=== PATIENT | female | born 1990 | race Caucasian/White ===

== ENCOUNTER 2017-10-08 09:51 | Emergency (ER) | payer OTHER ==
--- NOTE | 2017-10-08 09:57 | EDPHY ---
H & P Smoking Status: Never smoked Time Seen by Provider: 10/08/17 09:57 HPI/ROS: CHIEF COMPLAINT: Left leg swelling HISTORY OF PRESENT ILLNESS: 21 weeks woman with left leg symptoms; I was called by her primary OBGYN practice at 9:12 a.m. prior to her arrival. Presents with left leg swelling from her groin down to her toes that she just noticed today. Associated with a little reddish discoloration but without fever chills or chest pain or shortness of breath. No recent injury or trauma. Not better or worse with anything. Symptoms mild to moderate. Of note her father has a pro coagulant disorder that she tested negative for, but an aunt and uncle on her father's side have factor 5 Leiden. REVIEW OF SYSTEMS: Eye: no change in vision ENT: no sore throat Cardiac: no chest pain or syncope Pulmonary: no cough or SOB Abdomen: no vomiting, diarrhea, abdominal pain Musculoskeletal: Leg swelling as noted in HPI Skin: Slight redness left lower leg Neuro: no headache Constitutional: no fever : no urinary symptoms A comprehensive 10 point review of systems is otherwise negative aside from elements mentioned in the history of present illness. PAST MEDICAL HISTORY: 21 weeks Social history: Nonsmoker General Appearance: Alert and conversant, cooperative. Eyes: No scleral icterus. ENT, Mouth: Normal mucous membranes. Respiratory: Normal respiratory effort, breath sounds equal, lungs are clear to auscultation. Cardiovascular: Regular rate and rhythm. Normal dorsalis pedis pulse in the left foot. Gastrointestinal: Abdomen is soft and non tender. Neurological: Alert, face symmetric, normal motor and sensory in extremities. Specifically normal and motor and sensory in the left foot. Skin: Erythema but without warmth of the left leg from the groin down to the toes. No lymphangitis. Not hot to the touch. Musculoskeletal: Swelling of the left lower extremity, compartments are soft. Normal range of motion of hip ankle and knee. Psychiatric: Not agitated. Emergency Department course/MDM: Patient risk for DVT, ultrasound discussed and consented. 1045: Ultrasound negative for DVT, suspicion is high though so will next attempt pelvic ultrasound and/or MRI venogram if unable to visualize on ultrasound. 1132: Unable to see pelvic veins on ultrasound, discussed with Dr. Cooley, recommends MRI venogram, discussed with patient and consented. At this time the patient's leg toe by appearance is improving. 1441: MRI here, call Lenora at [phone] after results. I do not think it is likely she has compartment syndrome or fracture, cellulitis or fasciitis, arterial occlusion. A low-flow state noted ultrasound is certainly possible due to uterine compression of her left-sided venous return. Signed out to Martin at 1500 with plan to call her combatant swimmer after MR venogram results. (Yari Gasca) Constitutional: Initial Vital Signs Temperature (C) 36.8 C 10/08/17 09:52 Heart Rate 93 10/08/17 09:52 Respiratory Rate 18 10/08/17 09:52 Blood Pressure 117/78 10/08/17 09:52 O2 Sat (%) 96 10/08/17 09:52 O2 Delivery Mode Room Air Allergies/Adverse Reactions: No Known Allergies Allergy (Unverified 10/08/17 09:55) Home Medications: Medication Instructions Recorded Vit27&Calcium/Iron/FA 1 each PO DAILY 10/08/17 [ Rx 1 Tablet (RX)] Medical Decision Making - Diagnostics Imaging: Discussed imaging studies w/ call center representative Radiologist - Diagnostics Imaging Results: Imaging Impressions Extremity Venous Study 10/08/17 09:52 Impression: Slow blood flow without thrombus formation. Might the patient's uterus be pressing on the left pelvic venous system? A pelvic venous clot cannot be excluded. Results called and discussed with YARI GASCA, at 10/08/2017 10:39 Pelvic/Renal Ultrasound 10/08/17 10:45 Impression: The uterus is likely compressing the left common iliac vein. No thrombus seen in the left external iliac vein, which demonstrates extremely slow flow up to the point at which it is obscured by the uterus containing fetus. Results called to Dr. Yari Gasca at 11:44 AM. Pelvis MRI 10/08/17 11:32 Impression: Difficult exam due to extremely stagnant flow in the left leg and the inability to use IV contrast in a patient. Difficult to exclude a clot below the uterus which is severely extrinsically compressing the iliac bifurcation and left common iliac vein. A message was left for Dr. Nick Salazar at 4:34 PM. ED Course/Re-evaluation: 4:40 p.m. I discussed the MRI results with Dr. Cooley as well as the patient. No need to anticoagulate now. She suggests compression stockings and elevation and cetera. Patient is happy with this plan. She will follow up tomorrow with Dr. Cooley's office. (Nick Salazar) Differential Diagnosis: Differential considered including but not limited to cellulitis, compartment syndrome, arterial occlusion, DVT (Yari Gasca) - Data Points Laboratory Results: Laboratory Results 10/08/17 10:55 10/08/17 10:55 10/08/17 10/08/17 10/08/17 10:55 10:55 10:55 WBC 8.53 10^3/uL 10^3/uL (3.80-9.50) RBC 4.02 10^6/uL L 10^6/uL (4.18-5.33) Hgb 12.3 g/dL L g/dL (12.6-16.3) Hct 36.1 % L % (38.0-47.0) MCV 89.8 fL fL (81.5-99.8) MCH 30.6 pg pg (27.9-34.1) MCHC 34.1 g/dL g/dL (32.4-36.7) RDW 13.1 % % (11.5-15.2) Plt Count 160 10^3/uL 10^3/uL (150-400) MPV 10.6 fL fL (8.7-11.7) Neut % (Auto) 81.3 % H % (39.3-74.2) Lymph % (Auto) 12.2 % L % (15.0-45.0) [place] % (Auto) 4.6 % % (4.5-13.0) Eos % (Auto) 1.3 % % (0.6-7.6) Baso % (Auto) 0.2 % L % (0.3-1.7) Nucleat RBC Rel Count 0.0 % % (0.0-0.2) Absolute Neuts (auto) 6.94 10^3/uL H 10^3/uL (1.70-6.50) Absolute Lymphs (auto) 1.04 10^3/uL 10^3/uL (1.00-3.00) Absolute Monos (auto) 0.39 10^3/uL 10^3/uL (0.30-0.80) Absolute Eos (auto) 0.11 10^3/uL 10^3/uL (0.03-0.40) Absolute Basos (auto) 0.02 10^3/uL 10^3/uL (0.02-0.10) Absolute Nucleated RBC 0.00 10^3/uL 10^3/uL (0-0.01) Immature Gran % 0.4 % % (0.0-1.1) Immature Gran # 0.03 10^3/uL 10^3/uL (0.00-0.10) PT 12.9 SEC SEC (12.0-15.0) INR 0.95 (0.83-1.16) APTT 25.6 SEC SEC (23.0-38.0) Sodium 138 mEq/L mEq/L (135-145) Potassium 3.6 mEq/L mEq/L (3.3-5.0) Chloride 110 mEq/L mEq/L (97-110) Carbon Dioxide 19 mEq/l L mEq/l (22-31) Anion Gap 9 mEq/L mEq/L (8-16) BUN 10 mg/dL mg/dL (7-23) Creatinine 0.5 mg/dL L mg/dL (0.6-1.0) Estimated GFR > 60 Glucose 108 mg/dL H mg/dL (70-100) Calcium 9.0 mg/dL mg/dL (8.5-10.4) Departure - Departure Clinical Impression: Left leg swelling Condition: Good Instructions: Leg Edema (ED) Referrals: CHINEDU LUNDBERG [Other] - As per Instructions Carolina Cooley DO [Doctor of Osteopathy] - 1 day without fail
[2017-10-08 11:06] LABS: PLATELET COUNT 160 10^3/uL (150-400)
[2017-10-08 11:17] LABS: INR 0.95 (0.83-1.16); PROTIME(PATIENT) 12.9 SEC (12.0-15.0)
[2017-10-08 17:28] VITALS: BP 119/77
== END 2017-10-08 17:29 | disposition home or self-care (01) ==
DX: O99.89 Other specified diseases and conditions complicating pregnancy, childbirth and the puerperium (principal); R22.42 Localized swelling, mass and lump, left lower limb; Z3A.21 21 weeks gestation of pregnancy

== ENCOUNTER 2017-10-13 17:57 | Emergency (ER) | payer OTHER ==
--- NOTE | 2017-10-13 17:59 | EDPHY ---
H & P Time Seen by Provider: 10/13/17 17:58 HPI/ROS: CHIEF COMPLAINT: 22 weeks , diagnosed with DVT by ultrasound today HISTORY OF PRESENT ILLNESS: The patient is referred to the emergency department from her OB GYNs office. She was diagnosed with a DVT in the left leg today. Patient denies any chest pain or shortness breath. The patient is currently a . The patient was seen in the emergency department 5 days ago with swelling in the leg. At that point time she had an ultrasound which demonstrated low flow in the extremity but no evidence of an obvious clot. She underwent additional evaluation including a pelvic MRI and ultrasound. The patient was seen and by her OB today who PD the ultrasound which now demonstrates a clot. She continues to have no symptoms suggestive of pulmonary embolism. She had unremarkable laboratory testing performed earlier in the week. The patient does report a family history of thromboembolic events. REVIEW OF SYSTEMS: A comprehensive 10 point review of systems is otherwise negative aside from elements mentioned in the history of present illness. Source: Patient Exam Limitations: No limitations - Medical/Surgical History Other PMH: - Social History Smoking Status: Never smoked - Physical Exam Exam: General Appearance: Alert, no distress Eyes: Pupils equal and round no pallor or injection ENT, Mouth: Mucous membranes moist Respiratory: There are no retractions, lungs are clear to auscultation Cardiovascular: Regular rate and rhythm Gastrointestinal: Abdomen is soft and nontender, no masses, bowel sounds normal Neurological: A&O, normal motor function, normal sensory exam, normal cranial nerves Skin: Warm and dry, no rashes Musculoskeletal: Neck is supple nontender Extremities: Asymmetric swelling calf tenderness noted in the left leg, normal perfusion and capillary refill, no evidence of limb ischemia Psychiatric: Patient is oriented X 3, there is no agitation Constitutional: Initial Vital Signs Temperature (C) 36.6 C 10/13/17 18:00 Heart Rate 74 10/13/17 18:00 Respiratory Rate 16 10/13/17 18:00 Blood Pressure 128/71 H 10/13/17 18:00 O2 Sat (%) 98 10/13/17 18:00 O2 Delivery Mode Room Air Allergies/Adverse Reactions: No Known Allergies Allergy (Unverified 10/13/17 17:59) Home Medications: Medication Instructions Recorded Vit27&Calcium/Iron/FA 1 each PO DAILY 10/08/17 [ Rx 1 Tablet (RX)] Enoxaparin [Lovenox 80 MG (*)] 80 mg SQ Q12H #60 syr 10/13/17 Medical Decision Making - Diagnostics Imaging Results: Imaging Impressions Extremity Venous Study 10/13/17 16:30 Impression: 1. DVT extending from the common iliac vein through the distal femoral vein into the distal thigh. There is flow and compression of the popliteal vein and calf veins. Findings discussed with Carolina Cooley DO at 16:36 hour, 10/13/2017. ED Course/Re-evaluation: The patient is started on weight based Lovenox. She will follow up with her provider network manager as scheduled. I reviewed her laboratory studies from her prior ED visit. She has normal renal function. Departure - Departure Disposition: Home, Routine, Self-Care Clinical Impression: DVT (deep vein thrombosis) in Condition: Good Instructions: Deep Vein Thrombosis (ED) Additional Instructions: 1. Lovenox as directed. 2. Return to the ED for any chest pain or shortness of breath. 3. Please follow up with your provider network manager as scheduled. 4. You will need to be on Lovenox throughout your and will be transitioned to heparin close to delivery. Referrals: Carolina Cooley DO [Doctor of Osteopathy] - As per Instructions
[2017-10-13] MEDS ORDERED: ENOXAPARIN 80 MG/0.8 ML SYR SC ONE (18:04)
[2017-10-13 18:40] VITALS: BP 128/78
== END 2017-10-13 18:40 | disposition home or self-care (01) ==
DX: O22.32 Deep phlebothrombosis in pregnancy, second trimester (principal); I82.412 Acute embolism and thrombosis of left femoral vein; Z3A.22 22 weeks gestation of pregnancy
CPT/HCPCS: J1650

== ENCOUNTER 2018-02-11 06:00 | Inpatient (IN) | payer OTHER ==
[2018-02-12] MEDS ORDERED: OXYTOCIN/RINGERS LACTATE 1,000 ML IV PRN (06:24)
[2018-02-12] MEDS ORDERED: LR 1,000 ML IV PRN (06:24)
[2018-02-12] MEDS ORDERED: MISOPROSTOL 200 MCG TAB PR PRN (06:24)
[2018-02-12] MEDS ORDERED: IBUPROFEN 600 MG TAB PO PRN (06:24)
[2018-02-12] MEDS ORDERED: OLIVE OIL 118 ML BTL MISC PRN (06:24)
[2018-02-12] MEDS ORDERED: LIDOCAINE 1% 300 MG/30 ML SDV SC PRN (06:24)
[2018-02-12] MEDS ORDERED: TERBUTALINE SULFATE 1 MG/ML VIAL IV PRN (06:24)
[2018-02-12] MEDS ORDERED: EPSOM SALT 454 GM TP PRN (06:24)
[2018-02-12 06:58] LABS: PLATELET COUNT 144 10^3/uL (150-400)
[2018-02-12] MEDS ORDERED: OXYTOCIN/RINGERS LACTATE 500 ML IV SCH (07:30)
[2018-02-12] MEDS ORDERED: OXYTOCIN/LR *STANDARD DOSE PROTOCOL IV SCH (08:00)
--- NOTE | 2018-02-12 09:41 | OBPROG ---
Labor Progress Note Assessment/Plan: Assessment: IUP at 39w3d IOL due to hypercoag state with h/o DVT in preg at 22 wks last Lovenox pm 02/09 Plan: on pitocin - AROM, clear SIA when desires 02/12/18 09:30 Subjective/Intrapartum Course: 02/12/18 09:41 Pt doing fine. excited about starting induction - wants AROM to augment pit. SIA when desired. loose /-2, AROM clear Objective: 02/12/18 06:40 Patient ABO/Rh A POSITIVE 02/12/18 06:40 - SVE Dilation (cm): 3 Effacement (%): 80 Station: -2 Membranes: AROM Amniotic Fluid Color: Clear - Contraction Pattern Assessment Current Contraction Pattern: Regular (on pit 6 mu/min - q 2-4 mild) - FHR Assessment Ponce FHR (bpm): 130 FHR Pattern Variability: Moderate FHR Category: 2 (random subtle late decels, accels noted) - Procedures Non-surgical Procedures: Amniotomy - AP Antepartum Course: 02/12/18 09:44 DVT at 22 wks - common iliac to femoral, on lovenox 80 BID Oxytocin Orders Assessment - Pre-Induction/Augmentation Assessment Gestational Age: 39 week(s) and 3 day(s) ICD10 Worksheet Patient Problems: Problems Problem Status Onset Encounter for planned induction of labor Acute DVT during , antepartum Acute - ICD10 Problem Qualifiers (1) DVT during , antepartum
[2018-02-12] MEDS ORDERED: PHENYLEPHRINE HCL 100 MCG/ML SYR ONE (12:28)
[2018-02-12] MEDS ORDERED: BUPIVACAINE 0.25% 30 ML SDV ONE ×2 (12:28→12:31)
[2018-02-12] MEDS ORDERED: fentaNYL 2MCG/ML/BUP 0.1% RTU 100 ML BAG EP ONE (12:28)
[2018-02-12] MEDS ORDERED: fentaNYL 100 MCG/2 ML INJ ONE (12:29)
--- NOTE | 2018-02-12 13:01 | GHP ---
DATE OF ADMISSION: 02/12/2018 HISTORY OF PRESENT ILLNESS: The patient is a 27-year-old, G1, P0, at 39 weeks and 3 days, with an es timated due date of 02/16/2018, who presents for induction. Induction was recommended to optimize an ticoagulant dosing. The patient has had a DVT during this , at 22 weeks, and has been manag ed with Lovenox. The patient was planned for induction yesterday and held her dosing on the day prio r to planned induction; however, was unable to come in and induction is getting started today. The p atnati's last dose of Lovenox was on the evening of 02/09. The patient had a cervical exam of 3 cm di lation and 80% effaced in the office and, therefore, did not need cervical ripening. The patient pre sents this morning for induction. She denies any problems at this time. Denies headache or nausea o r vomiting. The patient is not having any regular contractions. No bleeding or rupture of membranes . She has been feeling good movement. The patient is interested in proceeding timely today an d desires rupture of membranes this morning to augment the Pitocin stimulation. CARE: The patient has been with [facility] since 9 weeks' gestation. The patient 's was essentially uncomplicated until October, at which time, she was seen in the emergency r oom due to swelling in the left lower leg. The patient has a significant family history of factor 5 Leiden disorder, but the patient was tested and it was negative. The patient was initially discharge d home; however, a followup evaluation showed a positive DVT from the common iliac to the femoral vei n. The patient was put on anticoagulation and has been on Lovenox. She saw specialists with [facility] who advised continuing Lovenox up until delivery. The patient has been on 80 mg twi ce a day. The plan is to continue the Lovenox at least 6 weeks and a followup with Hemato logy. LABS: The patient's blood type is A positive with negative antibody screen. RPR is nonreac tive. Rubella immune. Hepatitis B surface antigen negative. HIV negative. One-hour Glucola was te sted twice in the and that was normal both times. The patient had testing for cystic fibro sis, SMA, fragile X, and these were all negative. Standard genetic panel was negative. Verifi testi ng was negative. The patient is immune to varicella. Urinalysis and culture were negative. Gonorrh ea and chlamydia were negative. Initial CBC was 39 hematocrit, which dropped to 38% in the . Platelet count was 191,000. GBS culture was negative. PAST MEDICAL HISTORY: Negative. FAMILY HISTORY: Hypercoagulability with factor 2 and factor 5 mutations in the family, but patient h as been tested negative. PAST SURGICAL HISTORY: ACL surgery in January 2017. ALLERGIES: No known drug allergies. CURRENT MEDICATIONS: Only vitamins and the Lovenox 80 mg subcu twice daily. SOCIAL HISTORY: The patient is a nonsmoker. No alcohol or drug use through the . Reports occasional marijuana use prior to the . ADMISSION PHYSICAL EXAMINATION: GENERAL: The patient is a well-developed, well-nourished white fema le in no physical distress. VITAL SIGNS: All normal and the patient is afebrile. See nursing docum entation for full details. heart tone tracing reveals reactive tracing with a baseline in the 130s. There are accelerations and good variability. Ongoing monitoring throughout the morning has r evealed category 1 tracing. Contractions were slowly increasing on Pitocin induction. VAGINAL EXAM: Performed, the cervix was a loose 3, 80% effaced, -2 station. Artificial rupture of membranes was performed and clear fluid obtained. EXTREMITIES: Mild edema. Nontender. ASSESSMENT: Intrauterine at 39 weeks and 3 days for induction of labor to optimize anticoa gulant dosing. The patient had a deep vein thrombosis during this and has been on therapeu tic Lovenox with 80 mg twice daily with the last dose on the p.m. of 02/09. PLAN: Will continue Pitocin induction. GBS was negative and the patient has had rupture of membrane s with clear fluid. Will want an epidural when contraction strength increases. /[id number]/MODL
[2018-02-12] MEDS ORDERED: PHENYLEPHRINE HCL 100 MCG/ML SYR IVP PRN (15:35)
[2018-02-12] MEDS ORDERED: ONDANSETRON 4 MG/2 ML VIAL IVP PRN (15:35)
--- NOTE | 2018-02-12 15:41 | PREANESOB ---
Obstetric Pre-Anesthesia Info - General Info Proposed Procedure: Labor and delivery with pitocin. : 1 Para: 0 ANJEL: 02/16/18 Gestational Age: 39 week(s) and 3 day(s) - Info Status: Full Term Monitors: External FHR Baseline (bpm): 135 FHR Pattern: Reassuring - Labor Status Cervical Dilation per last OB SVE: 3 Station per last OB SVE: -2 Amniotic Fluid Color: Clear Pitocin: In Use Indications for Labor Analgesia: Induction of Labor (Induction because patient had thrombophlebitis of a lower extremity during this .) Labor Epidural: Proposed Anesthesia ROS: Was on lovenox 3 days ago for lower extremity thrombophlebitis. General anesthesia for knee surgery. Allergies/Adverse Reactions: Allergy/AdvReac Type Severity Reaction Status Date / Time No Known Allergies Allergy Unverified 10/13/17 17:59 Home Medications: Medication Instructions Recorded Vit27&Calcium/Iron/FA 1 each PO DAILY 10/08/17 [ Rx 1 Tablet (RX)] Enoxaparin [Lovenox 80 MG (*)] 80 mg SQ Q12H #60 syr 10/13/17 Visit Medications: Generic Name Dose Route Start Last Admin Trade Name Freq PRN Reason Stop Dose Admin Diphenhydramine HCl 25 - 50 mg 02/12/18 15:35 Benadryl Injection IVP 08/11/18 15:34 Q6HRS PRN Itching Lactated Ringer's 1,000 mls @ 0 mls/hr 02/12/18 06:24 Lr IV 02/13/18 06:23 PRN PRN SEE PROTOCOL CONDITIONS Protocol Per Protocol Oxytocin/Lactated Ringer's 1,000 mls @ 125 mls/hr 02/12/18 06:24 Pitocin 20 Units/Lr (Premix) IV PRN PRN Post bleeding Oxytocin/Lactated Ringer's 500 mls @ 0 mls/hr 02/12/18 08:00 02/12/18 07:53 Pitocin 30 Units/Lr (Premix) IV 08/11/18 07:59 500 mls CONT JAMEE Administration Protocol Per Protocol Fentanyl/Bupivacaine HCl 100 mls @ 0 mls/hr 02/12/18 16:00 Fentanyl/Bupivacaine/Ns 2 Mcg/Ml 0.1% (Premix EP 02/22/18 15:59 CONT [facility] Protocol As Directed Lactated Ringer's 500 mls @ 0 mls/hr 02/12/18 16:00 Lr IV 08/11/18 15:59 CONT [facility] As Directed Ibuprofen 600 mg 02/12/18 06:24 Motrin PO ONCE PRN post , pain Lidocaine HCl 300 mg 02/12/18 06:24 Lidocaine Hcl 1% SC 08/11/18 06:23 ONCE PRN episiotomy Magnesium Sulfate 454 gm 02/12/18 06:24 Epsom Salt TP 08/11/18 06:23 Q1H PRN perineal discomfort Misoprostol 800 - 1,000 mcg 02/12/18 06:24 Cytotec DE ONCE PRN Vaginal Atony/Bleeding [place] Oil 118 ml 02/12/18 06:24 Sweet Oil MISC 08/11/18 06:23 ONCE PRN perineal massage Ondansetron HCl 4 mg 02/12/18 15:35 Zofran IVP 02/13/18 15:34 Q4HRS PRN Nausea/Vomiting, Can't Take PO Phenylephrine HCl 100 mcg 02/12/18 15:35 Neosynephrine IVP 08/11/18 15:34 .Q2M PRN Hypotension Terbutaline Sulfate 0.25 mg 02/12/18 06:24 Brethine IV 08/11/18 06:23 ONCE PRN Tachysystole Discontinued Medications Generic Name Dose Route Start Last Admin Trade Name Freq PRN Reason Stop Dose Admin Bupivacaine HCl Confirm 02/12/18 12:28 Sensorcaine 0.25% Sdv Administered 02/12/18 12:29 Dose 30 ml .ROUTE .STK-MED ONE Bupivacaine HCl Confirm 02/12/18 12:31 Sensorcaine 0.25% Sdv Administered 02/12/18 12:32 Dose 30 ml .ROUTE .STK-MED ONE Fentanyl Confirm 02/12/18 12:29 Sublimaze Administered 02/12/18 12:30 Dose 100 mcg .ROUTE .STK-MED ONE Fentanyl/Bupivacaine HCl Confirm 02/12/18 12:28 Fentanyl/Bupivacaine/Ns 2 Mcg/Ml 0.1% (Premix Administered 02/12/18 12:29 Dose 100 ml EP .STK-MED ONE Phenylephrine HCl Confirm 02/12/18 12:28 Neosynephrine Administered 02/12/18 12:29 Dose 1,000 mcg .ROUTE .STK-MED ONE - Anesthesia History Response to Local Anesthetics: Normal Anesthesia & Operative History: No Prior Problems Family Anesthesia History: Negative - Social History Substance Use/Abuse: Denies - Vital Signs Blood Pressure: 114/79 Heart Rate: 88 Height/Weight (Nursing): Height 162.56 cm Weight 85.729 kg - Focused Exam Neck exam: FROM Mallampati Score: Class 2 Mouth exam: normal dental/mouth exam Pulmonary: no respiratory distress Cardiovascular: regular rate and rhythym Labs: 02/12/18 06:40 Patient ABO/Rh A POSITIVE 02/12/18 06:40 - Plan Anesthetic Plan: CSE Consent Signed and on Chart: Yes Patient/Guardian Understands and Agrees to Plan: Yes Urgent/Emergent Case: Rich huynh completed preop but documented later for safe timely pt care
--- NOTE | 2018-02-12 15:45 | POSTANESTH ---
Post Anesthetic Evaluation Cardiovascular Status: Normal, Stable, Similar to Pre-Op Cond Respiratory Status: Normal, Stable, Similar to Pre-op Cond. Level of Consciousness/Mental Status: Can Participate in Eval, Alert and Oriented Pain Control: Adequate, Prn Tx Ordered Nausea/Vomiting Control: Adequate, Prn Tx Ordered Complications Possibly Related to Anesthesia: None Noted
[2018-02-12] MEDS ORDERED: LIDOCAINE 1% 300 MG/30 ML SDV ONE (15:48)
[2018-02-12] MEDS ORDERED: AMMONIA AROMATIC 1 EACH AMP IH ONE (15:49)
[2018-02-12] MEDS ORDERED: MISOPROSTOL 200 MCG TAB ONE (15:49)
[2018-02-12] MEDS ORDERED: OXYTOCIN 10 UNIT/ML VIAL ONE (15:49)
[2018-02-12] MEDS ORDERED: OLIVE OIL 118 ML BTL ONE (15:49)
[2018-02-12] MEDS ORDERED: TERBUTALINE SULFATE 1 MG/ML VIAL ONE (15:49)
[2018-02-12] MEDS ORDERED: LR 500 ML IV SCH (16:00)
[2018-02-12] MEDS ORDERED: fentaNYL 2MCG/ML/BUP 0.1% RTU 100 ML EP SCH (16:00)
--- NOTE | 2018-02-12 17:14 | OBPROG ---
Labor Progress Note Assessment/Plan: Assessment: IUP at 39w3d IOL due to hypercoag state with h/o DVT in preg at 22 wks last Lovenox pm 02/09 great progress today with indxn Plan: on pitocin - only 2 mu/min- AROM, clear comfortable with SIA, ant lip by last exam approx 4p 02/12/18 09:30 02/12/18 17:11 Subjective/Intrapartum Course: 02/12/18 09:41 Pt doing fine. excited about starting induction - wants AROM to augment pit. SIA when desired. loose /-2, AROM clear 02/12/18 17:12 Pt doing great - comf with SIA, feeling more pressure in last hour. Objective: 02/12/18 06:40 Patient ABO/Rh A POSITIVE 02/12/18 06:40 Temp Pulse Resp BP Pulse Ox 88 114/79 02/12/18 15:44 02/12/18 15:44 - SVE Dilation (cm): 10 Effacement (%): 100 Station: +1 Membranes: AROM Amniotic Fluid Color: Clear Dilation Complete Date: 02/12/18 Dilation Complete Time: 17:00 - Contraction Pattern Assessment Current Contraction Pattern: Regular (on 2 mu/min pit, q 3 min) - FHR Assessment Ponce FHR (bpm): 120 FHR Pattern Variability: Moderate FHR Category: 1 (early decels with ctxns, occas variables with quick recovery) - Procedures Non-surgical Procedures: Amniotomy - AP Antepartum Course: 02/12/18 09:44 DVT at 22 wks - common iliac to femoral, on lovenox 80 BID Oxytocin Orders Assessment - Pre-Induction/Augmentation Assessment Gestational Age: 39 week(s) and 3 day(s) ICD10 Worksheet Patient Problems: Problems Problem Status Onset DVT during , antepartum Acute Encounter for planned induction of labor Acute - ICD10 Problem Qualifiers (1) DVT during , antepartum
--- NOTE | 2018-02-12 19:37 | OBDEL ---
Info Type: Vaginal Presentation at Delivery: Vertex L&D Analgesia/Anesthesia Type: Epidural GBS+: No Intrapartum Medications: Generic Name Dose Route Start Last Admin Trade Name Gt PRN Reason Stop Dose Admin Oxytocin/Lactated Ringer's 500 mls @ 0 mls/hr 02/12/18 08:00 02/12/18 07:53 Pitocin 30 Units/Lr (Premix) IV 08/11/18 07:59 500 mls CONT JAMEE Administration Protocol Per Protocol - Hospital Course Intrapartum: 02/12/18 09:41 Pt doing fine. excited about starting induction - wants AROM to augment pit. SIA when desired. loose /-2, AROM clear 02/12/18 17:12 Pt doing great - comf with SIA, feeling more pressure in last hour. Vaginal Delivery - Delivery Provider Delivery Physician/CNM: Carly Calderon - Labor and Delivery Onset of Contractions Date: 02/12/18 Onset of Contractions Time: 08:28 Onset of Contractions Type: Induced Rupture of Membranes Date: 02/12/18 Rupture of Membranes Time: 08:28 Rupture of Membranes Type: Artificial Amniotic Fluid Color: Clear Dilation Complete Date: 02/12/18 Dilation Complete Time: 17:00 Placenta Delivery Date: 02/12/18 Placenta Delivery Time: 19:11 Total Hours of Labor: 10 Non-surgical Procedures: Amniotomy Laceration: 1st Degree (Left periurethral, and mildline perineal) Repair: Other (Specify) (none) Vaginal Sponge Count Correct: Yes Vaginal Needle Count Correct: Yes Vaginal Sweep Performed: Yes EBL: 300 Delivery Events: Nuchal Cord (loose and reduced x1, long cord) - Medications Labor Augmentation/Induction Methods Used: Pitocin Labor Augmentation/Induction Indication: Other (Specify) (DVT in preg on lovenox ) Data ANJEL: 02/16/18 Gestational Age: 39 week(s) and 3 day(s) Ponce Delivery Date: 02/12/18 Delivery Time: 19:03 Sex of Infant: Female (Patito Moseley) Score (1 Min): 8 Score (5 Min): 9 ICD10 Worksheet Patient Problems: Problems Problem Status Onset (spontaneous vaginal delivery) Acute DVT during , antepartum Acute - ICD10 Problem Qualifiers (1) DVT during , antepartum
[2018-02-13] MEDS ORDERED: ENOXAPARIN 80 MG/0.8 ML SYR SC SCH (01:00)
[2018-02-13] MEDS: ACETAMINOPHEN 325 MG TAB PO SCH ×5 (02:00→19:45)
[2018-02-13] MEDS: IBUPROFEN 600 MG TAB PO SCH ×4 (02:01→21:24)
[2018-02-13] MEDS: ENOXAPARIN 80 MG/0.8 ML SYR SC SCH ×2 (05:43→17:48)
--- NOTE | 2018-02-13 10:07 | OBPP ---
Progress Note Assessment/Plan: Assessment: 27 y/o PPD #1 s/p IOL @ 39 weeks with h/o DVT in on Lovenox Plan: Re-started Lovenox this am @ 6:00, continue BID dosing. support and routine PPC. 02/13/18 10:04 Subjective/ Course: 02/13/18 10:02 Pt is doing well this am. She has min pain controlled with Tylenol and Ibuprofen. She is ambulating and voiding without difficulty and has min lochia. Breast feeding is going well and baby is doing well. They are working on breast feeding. She restarted her Lovenox this am @ 6:00 and will continue BID dosing until at least 6 weeks PP. Objective: 02/12/18 06:40 Patient ABO/Rh A POSITIVE 02/12/18 06:40 Temp Pulse Resp BP Pulse Ox 36.1 C 62 16 99/56 L 94 02/13/18 02:10 02/13/18 02:10 02/13/18 02:10 02/13/18 02:10 02/13/18 00:02 Uterine Position/Fundal Height: Umbilicus -2 Uterine Tone: Firm Physical Exam - Physical Exam General Appearance: WD/WN, alert, no apparent distress Neck: non-tender, full range of motion, supple Respiratory: chest non-tender, lungs clear, normal breath sounds Cardiac/Chest: regular rate, rhythm Abdomen: normal bowel sounds Extremities: swelling (no), Heath's sign (neg)
[2018-02-14] MEDS: ACETAMINOPHEN 325 MG TAB PO SCH ×2 (01:45→11:24)
[2018-02-14] MEDS: IBUPROFEN 600 MG TAB PO SCH ×2 (03:45→10:09)
[2018-02-14] MEDS: ENOXAPARIN 80 MG/0.8 ML SYR SC SCH (05:42)
[2018-02-14 09:48] VITALS: BP 116/79
--- NOTE | 2018-02-14 10:36 | OBPP ---
Progress Note Assessment/Plan: Assessment: 1) s/p PPD # 2- pt is stable 2) h/o DVT in - on Lovenox BID Plan: Plan for d/c home today Instructions reviewed with pt No RX given Cont PNV, colace prn Cont Lovenox BID x 6 weeks pp Pelvic rest RTC in 4 weeks for mood check and 6 weeks for a pp visit 02/14/18 10:33 Subjective/ Course: 02/13/18 10:02 Pt is doing well this am. She has min pain controlled with Tylenol and Ibuprofen. She is ambulating and voiding without difficulty and has min lochia. Breast feeding is going well and baby is doing well. They are working on breast feeding. She restarted her Lovenox this am @ 6:00 and will continue BID dosing until at least 6 weeks PP. 02/14/18 10:35 Pt seen and examined. Doing well, with no complaints. Some mild cramping, relief with Motrin. Mod lochia. Pt is OOB, kimberly regular diet, voiding without difficulty and passing flatus. No BM yet. BF is going well. Ready to go home. She is aware of Lovenox BID x 6 weeks. Objective: 02/12/18 06:40 Patient ABO/Rh A POSITIVE 02/12/18 06:40 Temp Pulse Resp BP Pulse Ox 36.4 C 58 L 18 116/79 94 02/14/18 08:00 02/14/18 08:00 02/14/18 08:00 02/14/18 08:00 02/14/18 08:00 Uterine Position/Fundal Height: Umbilicus -2 Uterine Tone: Firm Physical Exam - Physical Exam General Appearance: WD/WN, alert, no apparent distress Respiratory: lungs clear, normal breath sounds Cardiac/Chest: regular rate, rhythm Extremities: non-tender, normal inspection Skin: normal color, warm/dry Neuro/Psych: alert, normal mood/affect, oriented x 3
--- NOTE | 2018-02-14 10:37 | OBGCSDC ---
General Delivery Information - General Info : 1 Para: 1 Abortions: 0 Type: Vaginal L&D Analgesia/Anesthesia Type: Epidural Admission Date: 02/12/18 Labs: Patient ABO/Rh A POSITIVE 02/12/18 06:40 Hct 37.1 % (38.0-47.0) L 02/12/18 06:40 - Hospital Course Antepartum: 02/12/18 09:44 DVT at 22 wks - common iliac to femoral, on lovenox 80 BID Intrapartum: 02/12/18 09:41 Pt doing fine. excited about starting induction - wants AROM to augment pit. SIA when desired. loose /-2, AROM clear 02/12/18 17:12 Pt doing great - comf with SIA, feeling more pressure in last hour. : 02/13/18 10:02 Pt is doing well this am. She has min pain controlled with Tylenol and Ibuprofen. She is ambulating and voiding without difficulty and has min lochia. Breast feeding is going well and baby is doing well. They are working on breast feeding. She restarted her Lovenox this am @ 6:00 and will continue BID dosing until at least 6 weeks PP. 02/14/18 10:35 Pt seen and examined. Doing well, with no complaints. Some mild cramping, relief with Motrin. Mod lochia. Pt is OOB, kimberly regular diet, voiding without difficulty and passing flatus. No BM yet. BF is going well. Ready to go home. She is aware of Lovenox BID x 6 weeks. Vaginal - Delivery Provider Delivery Physician/CNM: Carly Calderon - Diagnosis Labor: Induced Rupture of Membranes Type: Artificial Amniotic Fluid Color: Clear Laceration: 1st Degree (Left periurethral, and mildline perineal) Repair: Other (Specify) (none) Delivery Events: Nuchal Cord (loose and reduced x1, long cord) - Procedures Non-surgical Procedures: Amniotomy - Delivery Non-surgical Procedures: Amniotomy EBL: [address] [place] Data ANJEL: 02/16/18 Gestational Age: 39 week(s) and 5 day(s) [place] Delivery Date: 02/12/18 Delivery Time: 19:03 Sex of : Female (Patito Moseley) Score (1 Min): 8 Score (5 Min): 9 Discharge Information - Discharge Information Condition: Good Instruction/Follow Up: Four Weeks (mood check), Six Weeks ( check)
== END 2018-02-14 11:20 | disposition home or self-care (01) | DRG 807 ==
LOC: FLD 02-12 06:14 → FOB 02-12 22:21
PROVIDERS: ADMIT Obstetrics & Gynecology; ATTEND Obstetrics & Gynecology
DX: O22.32 Deep phlebothrombosis in pregnancy, second trimester (principal); O70.0 First degree perineal laceration during delivery; Z86.718 Personal history of other venous thrombosis and embolism; O69.81X0 Labor and delivery complicated by cord around neck, without compression, not applicable or unspecified; Z79.01 Long term (current) use of anticoagulants; Z3A.39 39 weeks gestation of pregnancy; Z37.0 Single live birth
CPT/HCPCS: J1650; J2370; J2590; J3010; J3105